=== PATIENT | female | born 1955 | race Caucasian/White ===

== ENCOUNTER 2019-06-10 11:43 | Emergency (ER) | payer BC ==
[~2019-06-10] VITALS: Ht 157.5 cm; Wt 81.6 kg
--- NOTE | 2019-06-10 12:03 | NUR ---
PT WAS EVALUATED BY DR PEÑA. PT WAS D/C'd TO HOME. D/C INSTRUCTIONS GIVEN TO THE PT.
[2019-06-10 12:04] VITALS: BP 136/84
== END 2019-06-10 12:05 | disposition home or self-care (01) ==
LOC: ER 11:43
DX: S50.11XA Contusion of right forearm, initial encounter (principal); E78.5 Hyperlipidemia, unspecified; Z88.0 Allergy status to penicillin; W22.8XXA Striking against or struck by other objects, initial encounter; Y93.89 Activity, other specified; Y92.89 Other specified places as the place of occurrence of the external cause; Y99.8 Other external cause status
CPT/HCPCS: A4663